=== PATIENT | male | born 1995 ===

== ENCOUNTER 2018-01-08 21:35 | Emergency (ER) | payer SELFPAY ==
[2018-01-08 21:53] VITALS: BP 131/79; PULSE 86; RESP 18; TEMP 98.4; O2SAT 100; BMI 26.5
[2018-01-08] MEDS ORDERED: Lidocaine 1% Inj (20ml) IJ STA (21:55)
[2018-01-08] MEDS ORDERED: TDAP Vaccine 0.5 mL Syr IM ONE (21:55)
--- NOTE | 2018-01-08 22:03 | ED PDOC ---
Arrival/HPI <Nahun Enriquez - Last Filed: 01/09/18 00:32> - General Historian: Patient - History of Present Illness Time/Duration: 1-3 hours Symptom Onset: Sudden Symptom Course: Unchanged Context: Home <Bertram Hanley - Last Filed: 01/09/18 14:26> - General Chief Complaint: Abnormal Skin Integrity Time Seen by Provider: 01/08/18 21:52 - History of Present Illness Narrative History of Present Illness (Text): 01/08/18 22:02 A 22 year old male, with no past medical history, no food or drug allergies, last tetanus over 10 years ago, presents to the emergency department complaining of right anterior thigh laceration that developed 2 hours ago. Patient reports he was using a razor blade to open a package and accidentally sliced his right thigh region, bleeding stopped in emergency department. Patient is able to walk and stand. Denies any numbness, tingling or any other complaints at this time. (Bertram Hanley) Past Medical History - Provider Review Nursing Documentation Reviewed: Yes - Infectious Disease Hx of Infectious Diseases: None - Psychiatric Hx Psychophysiologic Disorder: No Hx Anxiety: No Hx Bipolar Disorder: No Hx Depression: No Hx Emotional Abuse: No Hx Hallucinations: No Hx Panic Disorder: No Hx Post Traumatic Stress Disorder: No Hx Psychosis: No Hx Physical Abuse: No Hx Schizophrenia: No Hx Sexual Abuse: No Hx Substance Use: No - Anesthesia Hx Anesthesia: No Hx Anesthesia Reactions: No Hx Malignant Hyperthermia: No <Bertram Hanley - Last Filed: 01/09/18 14:26> Family/Social History - Physician Review Nursing Documentation Reviewed: Yes Family/Social History: No Known Family HX Smoking Status: Current Some Days Smoker Hx Alcohol Use: Yes Frequency of alcohol use: Socially Hx Substance Use: No <Bertram Hanley - Last Filed: 01/09/18 14:26> Allergies/Home Meds <Nahun Enriquez - Last Filed: 01/09/18 00:32> <Bertram Hanley - Last Filed: 01/09/18 14:26> Allergies/Adverse Reactions: Allergies No Known Allergies Allergy (Verified 08/02/15 10:55) Review of Systems - Physician Review All systems were reviewed & negative as marked: Yes - Review of Systems Constitutional: absent: Fatigue, Fevers Eyes: absent: Vision Changes Respiratory: absent: SOB, Cough Cardiovascular: absent: Chest Pain Gastrointestinal: absent: Abdominal Pain, Nausea, Vomiting Skin: Laceration (right thigh). absent: Rash, Pruritis Neurological: absent: Headache, Dizziness Psychiatric: absent: Anxiety, Depression <Bertram Hanley - Last Filed: 01/09/18 14:26> Physical Exam Vital Signs Reviewed: Yes Temperature: Afebrile Blood Pressure: Normal Pulse: Regular Respiratory Rate: Normal Appearance: Positive for: Well-Appearing, Non-Toxic, Comfortable Pain Distress: Mild Mental Status: Positive for: Alert and Oriented X 3 - Systems Exam Head: Present: Atraumatic, Normocephalic Pupils: Present: PERRL Extroacular Muscles: Present: EOMI Mouth: Present: Moist Mucous Membranes Neck: Present: Normal Range of Motion Respiratory/Chest: Present: Clear to Auscultation, Good Air Exchange. No: Respiratory Distress, Accessory Muscle Use Cardiovascular: Present: Regular Rate and Rhythm, Normal S1, S2. No: Murmurs Abdomen: No: Tenderness, Distention, Peritoneal Signs Back: Present: Normal Inspection Upper Extremity: Present: Normal Inspection. No: Cyanosis, Edema Lower Extremity: Present: Neurovascularly Intact, Other (right lateral anterior thigh 2 cm superficial to intermediate depth laceration; no active bleeding or discharge, FROM without limitation, sensation intact, motor 5/5, +DPPT pulses. ) Neurological: Present: GCS=15, CN II-XII Intact, Speech Normal Skin: Present: Warm, Dry, Normal Color. No: Rashes Psychiatric: Present: Alert, Oriented x 3, Normal Insight, Normal Concentration <Bertram Hanley - Last Filed: 01/09/18 14:26> Vital Signs Temp Pulse Resp BP Pulse Ox 01/08/18 21:51 98.4 F 86 18 131/79 100 Medical Decision Making <Nahun Enriquez - Last Filed: 01/09/18 00:32> - RAD Interpretation Campus Interviews Intern: Radiologist <Bertram Hanley - Last Filed: 01/09/18 14:26> ED Course and Treatment: 01/08/18 21:59 Impression: A 22 year old male with laceration to right thigh. Plan: -- Radiology right femur -- Boostrix, Keflex, Motrin -- Will suture laceration -- Reassess and disposition 01/09/18 00:08 Progress Notes: PROCEDURE: LACERATION REPAIR Performed by the emergency provider Location: right anterior thigh Length:2 cm Description: clean wound edges,no foreign bodies Distal CMS: Normal. No deficits. Neurovascularly intact. Anesthesia: Lidocaine 1% 1cc Preparation: The wound was cleaned with NS 1000cc and Betadyne. The area was prepped and draped in the usual sterile fashion. Exploration: The wound was explored and no foreign bodies were found. Procedure: The wound was closed with 4-0 nylon. There was good / appropriate / adequate / loose approximation. In total, 3 sutures made Post-Procedure: Good closure and hemostasis. The patient tolerated the procedure well and there were no complications. CSM remains intact. Post procedure dressing applied. Total procedure time: 20 minutes. -Discharge home with keflex, motrin, keep the dressing dry and clean, follow up with your own pmd within 2 days, sutures need to be removed by day 8-10, avoid strenuous exercise or activity. (Bertram Hanley) - RAD Interpretation Radiology Orders: 01/08/18 21:55 Femur Right [FEMUR MIN 2 VIEWS RT] [RAD] Stat PROCEDURE: Right Femur Radiographs. HISTORY: rt. anterior thigh laceration COMPARISON: None. TECHNIQUE: AP and Lateral Radiographs of the right femur. FINDINGS: FEMUR: Normal. No fracture. SOFT TISSUES: Normal. OTHER FINDINGS: None. IMPRESSION: Unremarkable radiographs of the right femur. (Bertram Hanley) - Medication Orders Current Medication Orders: Discontinued Medications Cephalexin Monohydrate (Keflex) 500 mg PO STAT STA PRN Reason: Protocol Stop: 01/08/18 21:56 Last Admin: 01/08/18 23:48 Dose: 500 mg Ibuprofen (Motrin Tab) 600 mg PO STAT STA Stop: 01/08/18 21:56 Last Admin: 01/08/18 22:20 Dose: 600 mg Lidocaine HCl (Lidocaine 1% (20ml)) 1 ml IJ STAT STA Stop: 01/08/18 21:56 Last Admin: 01/08/18 22:20 Dose: 1 % Comments: administered by PA Tetanus/Reduced Diphtheria/Acell Pertussis (Boostrix Vaccine Inj) 0.5 ml IM .ONCE ONE Stop: 01/08/18 21:56 Last Admin: 01/08/18 23:48 Dose: 0.5 ml Immunization Registry Document 01/08/18 23:48 CNR (Rec: 01/08/18 23:48 CNR [id number]) Immunization Registry Consent Date 01/08/18 - PA / ETL DATABASE DEVELOPER / Resident Statement TRAVIS has reviewed & agrees with the documentation as recorded. <Nahun Enriquez - Last Filed: 01/09/18 00:32> - PA / ETL DATABASE DEVELOPER / Resident Statement TRAVIS has reviewed & agrees with the documentation as recorded. - Scribe Statement The provider has reviewed the documentation as recorded by the Scribe <Bertram Hanley - Last Filed: 01/09/18 14:26> - Scribe Statement Karena Gill Provider Scribe Attestation: All medical record entries made by the Scribe were at my direction and personally dictated by me. I have reviewed the chart and agree that the record accurately reflects my personal performance of the history, physical exam, medical decision making, and the department course for this patient. I have also personally directed, reviewed, and agree with the discharge instructions and disposition. (Bertram Hanley) Disposition/Present on Arrival <Nahun Enriquez - Last Filed: 01/09/18 00:32> - Present on Arrival Any Indicators Present on Arrival: No History of DVT/PE: No History of Uncontrolled Diabetes: No Urinary Catheter: No History of Decub. Ulcer: No History Surgical Site Infection Following: None - Disposition Have Diagnosis and Disposition been Completed?: Yes Disposition Time: 22:18 Patient Plan: Discharge <Bertram Hanley - Last Filed: 01/09/18 14:26> - Disposition Diagnosis: Thigh laceration Disposition: HOME/ ROUTINE Condition: IMPROVED Additional Instructions: -Discharge home with keflex, motrin, keep the dressing dry and clean, follow up with your own pmd within 2 days, sutures need to be removed by day 8-10, avoid strenuous exercise or activity. Prescriptions: Cephalexin [cephalexin] 500 mg PO QID #32 cap Ibuprofen [Motrin] 600 mg PO QID PRN #20 tab PRN Reason: Other Referrals: PCP,NO [Primary Care Provider] - Follow up with primary Sid Toure MD [Staff Provider] - Follow up with primary Forms: WORK NOTE
--- NOTE | 2018-01-09 09:12 | RAD ---
PROCEDURE: Right Femur Radiographs. HISTORY: rt. anterior thigh laceration COMPARISON: None. TECHNIQUE: AP and Lateral Radiographs of the right femur. FINDINGS: FEMUR: Normal. No fracture. SOFT TISSUES: Normal. OTHER FINDINGS: None. IMPRESSION: Unremarkable radiographs of the right femur.
== END 2018-01-09 00:19 | disposition home or self-care (01) ==
LOC: ED 21:35
DX: S71.111A Laceration without foreign body, right thigh, initial encounter (principal); W27.8XXA Contact with other nonpowered hand tool, initial encounter; Y92.9 Unspecified place or not applicable; Z23 Encounter for immunization

== ENCOUNTER 2018-01-16 12:34 | Emergency (ER) | payer OTHER ==
[2018-01-16 12:34] VITALS: BMI 26.5
[2018-01-16 12:52] VITALS: BP 115/60; PULSE 56; RESP 16; TEMP 98.2; O2SAT 96
--- NOTE | 2018-01-16 13:27 | ED PDOC ---
Arrival/HPI - General Historian: Patient <Bertram Hanley - Last Filed: 01/16/18 13:20> <Kelsey Rushing - Last Filed: 01/16/18 17:24> - General Chief Complaint: Suture/Staple Removal Time Seen by Provider: 01/16/18 13:19 - History of Present Illness Narrative History of Present Illness (Text): 01/16/18 13:20 22 y/o male, no significant pmh, nkda, c/o here for the suture removal from the right thigh s/p sutured about 8 days ago. Pt. has no numbness or tingling, healed well and dry, no palpitation, no rash, no numbness or tingling, no other medical or psychological complaints. (Bertram Hanley) Past Medical History - Provider Review Nursing Documentation Reviewed: Yes - Infectious Disease Hx of Infectious Diseases: None - Cardiac Hx Cardiac Disorders: No - Pulmonary Hx Respiratory Disorders: No - Neurological Hx Neurological Disorder: No - HEENT Hx HEENT Disorder: No - Renal Hx Renal Disorder: No - Endocrine/Metabolic Hx Endocrine Disorders: No - Hematological/Oncological Hx Blood Disorders: No - Integumentary Hx Dermatological Disorder: Yes Other/Comment: LACERATION - Musculoskeletal/Rheumatological Hx Musculoskeletal Disorders: No - Gastrointestinal Hx Gastrointestinal Disorders: No - Genitourinary/Gynecological Hx Genitourinary Disorders: No - Psychiatric Hx Psychophysiologic Disorder: No Hx Substance Use: No - Anesthesia Hx Anesthesia: No <Bertram Hanley - Last Filed: 01/16/18 13:20> Family/Social History - Physician Review Nursing Documentation Reviewed: Yes Family/Social History: Unknown Family HX Smoking Status: Current Some Days Smoker Hx Alcohol Use: Yes Hx Substance Use: No <Bertram Hanley - Last Filed: 01/16/18 13:20> Allergies/Home Meds <Bertram Hanley - Last Filed: 01/16/18 13:20> <Kelsey Rushing - Last Filed: 01/16/18 17:24> Allergies/Adverse Reactions: Allergies No Known Allergies Allergy (Verified 01/16/18 12:47) Home Medications: Home Meds Medication Instructions Recorded Confirmed No Known Home Med 01/16/18 01/16/18 Review of Systems - Review of Systems Constitutional: absent: Fatigue, Fevers Eyes: absent: Vision Changes ENT: absent: Hearing Changes Respiratory: absent: SOB, Cough Cardiovascular: absent: Chest Pain Gastrointestinal: absent: Abdominal Pain Skin: Laceration. absent: Rash, Pruritis, Skin Lesions, Abscess, Ulcer, Cellulitis Neurological: absent: Headache, Dizziness, Speech Changes <Bertram Hanley - Last Filed: 01/16/18 13:20> Physical Exam Vital Signs Reviewed: Yes Temperature: Afebrile Blood Pressure: Normal Pulse: Bradycardic Respiratory Rate: Normal Appearance: Positive for: Well-Appearing, Non-Toxic, Comfortable Pain Distress: None Mental Status: Positive for: Alert and Oriented X 3 - Systems Exam Head: Present: Atraumatic, Normocephalic Pupils: Present: PERRL Extroacular Muscles: Present: EOMI Conjunctiva: Present: Normal Mouth: Present: Moist Mucous Membranes Neck: Present: Normal Range of Motion Respiratory/Chest: Present: Clear to Auscultation, Good Air Exchange. No: Respiratory Distress, Accessory Muscle Use Cardiovascular: Present: Regular Rate and Rhythm, Normal S1, S2. No: Murmurs Abdomen: No: Tenderness, Distention, Peritoneal Signs Back: Present: Normal Inspection Upper Extremity: Present: Normal Inspection. No: Cyanosis, Edema Lower Extremity: Present: Normal Inspection, Other (Rt. anterior lateral thigh visible completely healed and non-infected 3 sutures wound, no cellulitis or streaking, no ulcers. ). No: Edema Neurological: Present: GCS=15, CN II-XII Intact, Speech Normal Skin: Present: Warm, Dry, Normal Color. 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 -Discharge home with education on follow up with your own pmd within 2 days, return to the ER for any new or worsening signs or symptoms. (Bertram Hanley) - PA / AUTO PORTER / Resident Statement / has reviewed & agrees with the documentation as recorded. <Bertram Hanely - Last Filed: 01/16/18 13:20> - PA / AUTO PORTER / Resident Statement / has reviewed & agrees with the documentation as recorded. <Kelsey Rushing - Last Filed: 01/16/18 17:24> Disposition/Present on Arrival - Present on Arrival Any Indicators Present on Arrival: No History of DVT/PE: No History of Uncontrolled Diabetes: No Urinary Catheter: No History of Decub. Ulcer: No History Surgical Site Infection Following: None - Disposition Have Diagnosis and Disposition been Completed?: Yes Disposition Time: 13:29 Patient Plan: Discharge <Bertram Hanley - Last Filed: 01/16/18 13:20> <Kelsey Rushing - Last Filed: 01/16/18 17:24> - Disposition Diagnosis: Visit for suture removal Disposition: HOME/ ROUTINE Condition: GOOD Additional Instructions: -Discharge home with education on follow up with your own pmd within 2 days, return to the ER for any new or worsening signs or symptoms. Referrals: PCP,NO [Primary Care Provider] - Follow up with primary [facility] [Outside] - Follow up with primary
== END 2018-01-16 13:36 | disposition home or self-care (01) ==
LOC: ED 12:34
DX: Z48.02 Encounter for removal of sutures (principal); F17.200 Nicotine dependence, unspecified, uncomplicated